=== PATIENT | female | born 1990 | race Caucasian/White ===

== ENCOUNTER 2017-04-10 15:09 | Emergency (ER) | payer MEDICAID ==
[2017-04-10] MEDS: predniSOLONE (3 MG/ML) CUP PO (17:30)
[2017-04-10] MEDS: RANITIDINE 150 MG TAB PO (17:30)
== END 2017-04-10 18:17 | disposition home or self-care (01) ==
LOC: E/R 15:09 → FTE 18:17
DX: K21.9 Gastro-esophageal reflux disease without esophagitis (principal)
CPT/HCPCS: 99283; J7510

== ENCOUNTER 2017-05-17 23:54 | Emergency (ER) | payer MEDICAID | END 2017-05-18 04:02 | disposition home or self-care (01) | LOC: FTE 23:54 | DX: J02.9 Acute pharyngitis, unspecified (principal) | CPT/HCPCS: 99283; Z7502 ==